=== PATIENT | female | born 1960 | race Caucasian/White ===

== ENCOUNTER 2024-11-25 05:51 | Day surgery (SDC) | payer OTHER ==
[2024-11-22 11:56] VITALS: BP 151/83
[~2024-11-25] VITALS: Ht 175.3 cm; Wt 85.3 kg
[~2024-11-25 05:51] MED LIST: COZAAR25 MG PO; CRESTOR40 MG; SYNTHROID75 MCG PO
[2024-11-25] MEDS ORDERED: CLINDAMYCIN PHOSPHATE 150 MG/ML (900mg) ONE (11:07)
[2024-11-25] MEDS ORDERED: POVIDONE-IODINE 118 ML BOTT TOP ONE (11:08)
[2024-11-25] MEDS ORDERED: CEFAZOLIN SODIUM 1,000 MG VIAL ONE ×3 (11:08→15:30)
[2024-11-25] MEDS ORDERED: POVIDONE-IODINE SCRUB 118 ML BOTT TOP ONE (11:08)
[2024-11-25] MEDS ORDERED: GENTAMICIN SULFATE 40 MG/ML VIAL ONE ×2 (11:08→15:30)
[2024-11-25] MEDS ORDERED: BUPIVACAINE HCL/MPF 0.5% 30ML VIAL ONE ×2 (11:08→15:28)
[2024-11-25] MEDS ORDERED: TRANEXAMIC ACID 100MG/1ML (1000MG) AMPUL IV ONE (11:10)
[2024-11-25] MEDS ORDERED: CLINDAMYCIN PHOSPHATE 150 MG/ML (300mg) ONE (15:28)
[2024-11-25] MEDS ORDERED: CLINDAMYCIN PHOSPHATE 150 MG/ML (600mg) ONE (15:28)
[2024-11-25] MEDS ORDERED: CHLORHEXIDINE GLUCONATE 120 ML BOTTLE TOP ONE (15:29)
[2024-11-25] MEDS ORDERED: LIDOCAINE HCL 1%/EPINEPHRINE 20ML VIAL IJ ONE (15:29)
[2024-11-25] MEDS ORDERED: EPINEPHRINE HCL/PF 1 MG/ML AMPUL ONE (16:31)
[2024-11-25] MEDS ORDERED: MORPHINE SULFATE 4 MG/ML VIAL IV ONE (20:00)
== END 2024-11-25 22:05 | disposition home or self-care (01) ==
LOC: CIR.AMB 05:51
PROVIDERS: ATTEND Surgery
DX: D05.12 Intraductal carcinoma in situ of left breast (principal); D05.11 Intraductal carcinoma in situ of right breast; R59.0 Localized enlarged lymph nodes; N60.92 Unspecified benign mammary dysplasia of left breast; N60.91 Unspecified benign mammary dysplasia of right breast; N60.21 Fibroadenosis of right breast; Z90.13 Acquired absence of bilateral breasts and nipples; N65.1 Disproportion of reconstructed breast; N63.11 Unspecified lump in the right breast, upper outer quadrant; E03.8 Other specified hypothyroidism; N60.11 Diffuse cystic mastopathy of right breast; I10 Essential (primary) hypertension; E78.5 Hyperlipidemia, unspecified

== ENCOUNTER 2025-01-13 08:31 | Outpatient (CLI) | payer OTHER | END 2025-01-13 08:37 | disposition home or self-care (01) | LOC: SONOGRAMA 08:31 | PROVIDERS: ATTEND Plastic Surgery | DX: C50.912 Malignant neoplasm of unspecified site of left female breast (principal); N64.89 Other specified disorders of breast; L76.82 Other postprocedural complications of skin and subcutaneous tissue ==